=== PATIENT | female | born 1985 | race Asian ===

== ENCOUNTER 2020-03-31 09:37 | Outpatient (CLI) | payer BC, SELFPAY ==
--- NOTE | ~2020-03-31 | MR_ITS ---
EXAMINATION: MR pituitary wo/w con DATE: 03/31/2020 11:09 INDICATION: Hyperprolactinemia. TECHNIQUE: Magnetic resonance imaging (MRI) of the brain and brainstem was performed without and with 15 mL MultiHance intravenous contrast. Whole-brain sequences included sagittal T1-weighted FSE, axia l diffusion-weighted FS EPI, axial T2*-weighted GRE, axial T2-weighted FLAIR Propeller, and axial T2- weighted Propeller. Small pflio-yq-yfqw sequences included sagittal and coronal T1-weighted FSE cente red at the pituitary. Postcontrast sequences included small mwawj-ml-tmng coronal T1-weighted FSE in a time course and sagittal T1-weighted FSE and whole-brain axial T1-weighted FSE. Apparent diffusion coefficient (ADC) maps were created. COMPARISON: None. FINDINGS: The pituitary is normal in size with height of 7 mm and concave superior margin. There is a 3 mm hypoenhancing versus nonenhancing mass in the pituitary on the left. There is no intracranial h emorrhage or acute ischemic infarct. The ventricles are normal in size. The orbits are normal. The pa ranasal sinuses are clear. The mastoid air cells are normal. IMPRESSION: 1. 3 mm pituitary mass, which may be a microadenoma or benign cyst. Reviewed, dictated and finalized at location A. Y INTERVENTION SPECIALIST
[2020-03-31 10:19] LABS: Estimated Glomerular Filt Rate > 60
== END 2020-03-31 09:38 | disposition home or self-care (01) ==
LOC: ANHIMG 09:46
PROVIDERS: PCP Internal Medicine; Visit Provider Obstetrics & Gynecology
DX: R79.89 Other specified abnormal findings of blood chemistry (principal); E23.7 Disorder of pituitary gland, unspecified
CPT/HCPCS: 70553; A9577

== ENCOUNTER 2020-05-16 12:54 | Outpatient (RCR) | payer BC, SELFPAY ==
[2020-05-22 05:42] LABS: Progesterone 14.7 ng/mL (***)
== END 2020-08-12 23:59 | disposition home or self-care (01) ==
LOC: ANHLAB 12:54
PROVIDERS: PCP Internal Medicine; Visit Provider Obstetrics & Gynecology
DX: N91.2 Amenorrhea, unspecified (principal)
CPT/HCPCS: 36415; 84144; 84702

== ENCOUNTER 2020-06-10 13:11 | Outpatient (CLI) | payer BC, SELFPAY ==
--- NOTE | 2020-06-10 13:15 | ECG_ITS ---
Measurements Intervals [place] Rate: 77 P: 17 MA: 141 QRS: 34 QRSD: 78 T: 19 QT: 374 QTc: 423 Interpretive Statements SINUS RHYTHM NORMAL ECG Electronically Signed On 06-10-2020 13:37:34 CAREER DEVELOPMENT MANAGER by Hao Morrissey D.O.
== END 2020-06-10 13:12 | disposition home or self-care (01) ==
LOC: ANHLAB 13:12 → ANHCARD 13:13
PROVIDERS: PCP Internal Medicine; Visit Provider Obstetrics & Gynecology
DX: R07.89 Other chest pain (principal); R06.02 Shortness of breath
CPT/HCPCS: 93005

== ENCOUNTER 2020-07-11 09:59 | Outpatient (CLI) | payer BC, SELFPAY ==
[2020-07-11 12:56] LABS: Glucose 1 Hour PP 50gm Dose 152 mg/dL
== END 2020-07-11 10:00 | disposition home or self-care (01) ==
PROVIDERS: PCP Internal Medicine; Visit Provider Obstetrics & Gynecology
DX: Z34.90 Encounter for supervision of normal pregnancy, unspecified, unspecified trimester (principal); Z3A.00 Weeks of gestation of pregnancy not specified
CPT/HCPCS: 36415; 82947

== ENCOUNTER 2020-07-16 08:29 | Outpatient (CLI) | payer BC, SELFPAY ==
[2020-07-16 09:01] LABS: Glucose Fasting Gestational 98 mg/dL (>/=95)
[2020-07-16 10:35] LABS: Glucose 1 Hour Gest 159 mg/dL (>/=180)
[2020-07-16 12:10] LABS: Glucose 2 Hour Gest 123 mg/dL (>/= 155)
[2020-07-16 12:32] LABS: Glucose 3 Hour Gest 105 mg/dL (>/=140)
== END 2020-07-16 08:30 | disposition home or self-care (01) ==
LOC: ANHLAB 08:31
PROVIDERS: PCP Internal Medicine; Visit Provider Obstetrics & Gynecology
DX: R73.09 Other abnormal glucose (principal)
CPT/HCPCS: 0001A; 36415; 82951; 82952; 91300

== ENCOUNTER 2020-10-22 08:03 | Outpatient (CLI) | payer OTHER, SELFPAY ==
[2020-10-22 08:22] LABS: Basophils Percent Auto 0.4 % (0.2-1.2); Eosinophils Absolute Auto 0.2 K/mm3 (0-0.3); Eosinophils Percent Auto 1.6 % (0-4.4); Hematocrit 34.1 % (37.0-47.0); Hemoglobin 10.7 g/dL (12.0-15.0); Immature Granulocyte Absolute 0.25 K/mm3 (0.00-0.031); Immature Granulocyte Percent A 2.6 % (0-0.5); Lymphocytes Absolute Auto 1.98 K/mm3 (0.9-3.2); Lymphocytes Percent Auto 20.9 % (18.3-44.2); Mean Corpuscular HGB Conc 31.4 g/dl (32-36); Mean Corpuscular Hemoglobin 22.4 pg (26-34); Mean Corpuscular Volume 71.3 fl (80-100); Mean Platelet Volume 10.7 fl (7.4-10.4); Monocytes Absolute Auto 0.7 K/mm3 (0.1-0.6); Monocytes Percent Auto 7.4 % (2.6-8.5); Neutrophils Absolute Auto 6.4 K/mm3 (1.3-6.7); Neutrophils Percent Auto 67.1 % (45.5-73.1); Platelet Count Result 200 k/mm3 (150-375); Red Blood Count 4.78 M/mm3 (4.2-5.4); Red Cell Distribution Width 13.7 % (11.5-14.5); White Blood Count 9.5 K/mm3 (4.5-10.0)
[2020-10-22 08:48] LABS: Glucose Fasting Gestational 106 mg/dL (>/=95)
[2020-10-22 10:37] LABS: Glucose 1 Hour Gest 199 mg/dL (>/=180)
[2020-10-22 10:59] LABS: Glucose 2 Hour Gest 165 mg/dL (>/= 155)
[2020-10-22 11:58] LABS: Glucose 3 Hour Gest 122 mg/dL (>/=140)
== END 2020-10-22 08:04 | disposition home or self-care (01) ==
LOC: ANHLAB 08:05
PROVIDERS: PCP Internal Medicine; Visit Provider Obstetrics & Gynecology
DX: O99.810 Abnormal glucose complicating pregnancy (principal); Z3A.00 Weeks of gestation of pregnancy not specified
CPT/HCPCS: 36415; 82951; 82952; 85025; 86850

== ENCOUNTER 2020-10-29 09:30 | Outpatient (RCR) | payer OTHER, SELFPAY ==
[2020-10-29 09:30] VITALS: BMI 31.8
[2020-10-29 09:40] VITALS: BMI 31.8
== END 2021-01-18 12:20 | disposition home or self-care (01) ==
LOC: ANHDMC 09:30
PROVIDERS: PCP Internal Medicine; Visit Provider Obstetrics & Gynecology
DX: O24.419 Gestational diabetes mellitus in pregnancy, unspecified control (principal); Z3A.00 Weeks of gestation of pregnancy not specified; Z71.3 Dietary counseling and surveillance; Z71.89 Other specified counseling
CPT/HCPCS: 97802; G0108

== ENCOUNTER 2020-12-09 13:30 | Outpatient (RCR) | payer OTHER, SELFPAY ==
[2020-11-04 14:15] VITALS: BP 123/73; PULSE 72
--- NOTE | ~2020-12-09 | US_ITS ---
EXAMINATION: US OB limited DATE: 11/04/2020 13:59 INDICATION: Decreased movement, third trimester TECHNIQUE: Real-time ultrasound of the pelvis was performed. The interpreting radiologist was not pre sent for the study. COMPARISON: None. FINDINGS: There is a single living fetus in breech presentation. The placenta is fundal. cardia c activity and movement are noted. heart rate is 157 beats per minute (bpm). The amniotic fluid index is 9.9 cm which is normal. IMPRESSION: 1. Single living fetus in breech presentation. 2. Normal amniotic fluid index. Reviewed, dictated and finalized at location B.
[2020-12-09 14:02] VITALS: BP 118/78; PULSE 76
== END 2020-12-16 08:17 | disposition home or self-care (01) ==
LOC: ANHOBOP 13:30
PROVIDERS: PCP Internal Medicine; Visit Provider Obstetrics & Gynecology
DX: O36.8130 Decreased fetal movements, third trimester, not applicable or unspecified (principal); Z3A.31 31 weeks gestation of pregnancy; Z3A.36 36 weeks gestation of pregnancy
CPT/HCPCS: 59025; 76815

== ENCOUNTER 2020-12-14 17:09 | Inpatient (IN) | payer OTHER, SELFPAY ==
[2020-12-14] VITALS (14 sets, daily range): BP systolic 120–141; BP diastolic 70–88; PULSE 74–87; TEMP 36.3–36.4; BMI 31.8
--- NOTE | 2020-12-14 17:09 | LDADM ---
This patient, Samantha Gomez, was admitted to Labor/Delivery/Recovery 108 on 12/14/20 at 17:09. Plans for labor, pain management and were discussed with patient. Patient/family oriented to hospital policies and general routines including ID bracelet, bed and alarms, visiting hours, pain management, procedures, bathroom and other care routines, personal items, smoking policy, room service/diet and guest tray routines, security routines, and visiting hours. Patient/Family are encouraged to report perceived risks to care and to ask questions if they do not understand what they are told or what they should do. See OBIX for further documentation.
--- NOTE | 2020-12-14 18:22 | WPDANESEPPF ---
Anes - Initial Pre Proc Eval Procedure: labor epidural Date/Time: 12/14/20 18:22 Surgeon: Shoaib Sapp MD Pre Op Diagnosis: labor pain Pre Op Diagnosis: Induction of Labor Patient Data Age: 35 Gender: F Height: Weight: Last Vital Signs Pulse 84 12/14/20 18:15 BP 124/77 12/14/20 18:15 Allergies Allergy/AdvReac Type Severity Reaction Status Date / Time No Known Allergies Allergy Verified 12/14/20 09:11 Home Medications Medication Instructions Recorded Confirmed Type prenat.vits,curt,gvz-hzlt-vglth 1 tablet PO DAILY 03/12/20 12/05/20 History acetaminophen 500 mg tablet 500 mg PO Q6H PRN 08/13/20 12/05/20 History blood sugar diagnostic #100 ea 10/26/20 12/05/20 Rx blood-glucose meter #1 ea 10/26/20 12/05/20 Rx lancets 33 gauge #100 ea 10/26/20 12/05/20 Rx ferrous sulfate mg PO 12/09/20 History insulin glargine [Lantus U-100 18 unit SUBCUT 12/09/20 12/09/20 History Insulin] Patient hx anesthesia problems: none Family hx anesthesia problems: none PMFSH Past Medical History Medical History (Updated 12/14/20 @ 18:23 by Jairo Lewis DO) Asthma Gestational diabetes History of PCOS Migraines Obesity Swollen joint Surgical History Surgical History [place] teeth removed Family History Family History Father Hypertension Mother Hypertension Sibling IBS (irritable bowel syndrome) Social History Social History Smoking status: Never smoker Alcohol intake: never Substance use: never Spiritual care concerns: No Anes - Eval Final PreProcedure Day of Procedure 12/14/20 18:22 Patient weight: obese ASA classification: III Anesthesia type and monitoring: regional epidural Informed Consent: The patient's anesthetic plan and its attendant risks and benefits were discussed with the patient/family/POA. Questions were solicited and answers provided to the satisfaction of the patient/family/POA.
[2020-12-14 18:48] LABS: Basophils Percent Auto 0.3 % (0.2-1.2); Eosinophils Absolute Auto 0.1 K/mm3 (0-0.3); Eosinophils Percent Auto 1.3 % (0-4.4); Hematocrit 34.9 % (37.0-47.0); Hemoglobin 10.9 g/dL (12.0-15.0); Immature Granulocyte Percent A 1.2 % (0-0.5); Lymphocytes Absolute Auto 2.02 K/mm3 (0.9-3.2); Lymphocytes Percent Auto 23.4 % (18.3-44.2); Mean Corpuscular HGB Conc 31.2 g/dl (32-36); Mean Corpuscular Hemoglobin 22.4 pg (26-34); Mean Corpuscular Volume 71.8 fl (80-100); Mean Platelet Volume 11.7 fl (7.4-10.4); Monocytes Absolute Auto 0.6 K/mm3 (0.1-0.6); Monocytes Percent Auto 6.8 % (2.6-8.5); Neutrophils Absolute Auto 5.8 K/mm3 (1.3-6.7); Platelet Count Result 192 k/mm3 (150-375); Red Blood Count 4.86 M/mm3 (4.2-5.4); Red Cell Distribution Width 14.9 % (11.5-14.5); White Blood Count 8.7 K/mm3 (4.5-10.0)
[2020-12-14] MEDS: DINOPROSTONE 10 MG VAG INSERT VAGINAL (19:02)
[2020-12-14] MEDS: LACTATED RINGERS 1,000 ML 125 ML IV CONT (19:09)
[2020-12-14] MEDS: AMPICILLIN 2 GM/NS 100 ML 2 GM/100 ML BAG IVPB (19:10)
[2020-12-14 19:37] LABS: Glucose Point of Care 96 mg/dl (65-105)
[2020-12-14] MEDS: INSULIN GLARGINE (*BKC) 100 UNITS/ML 18 UNITS SUB-Q (22:08)
[2020-12-14] MEDS: AMPICILLIN 1 GM/NS 50 ML 1 GM/50 ML BAG IVPB (23:45)
[2020-12-15] VITALS (101 sets, daily range): BP systolic 96–153; BP diastolic 55–93; PULSE 65–111; RESP 16–20; TEMP 36.4–37.3; O2SAT 96–100
[2020-12-15] MEDS: fentaNYL CITRATE INJ (*CRX) 100 MCG/2 ML VIAL 50 MCG IV PUSH (01:33)
[2020-12-15] MEDS: AMPICILLIN 1 GM/NS 50 ML 1 GM/50 ML BAG IVPB ×4 (03:13→14:42)
[2020-12-15] MEDS: fentaNYL CITRATE INJ (*CRX) 100 MCG/2 ML VIAL IV PUSH (03:13)
[2020-12-15] MEDS: LACTATED RINGERS 1,000 ML 125 ML IV CONT ×2 (06:21→07:16)
[2020-12-15 06:34] LABS: Glucose Point of Care 92 mg/dl (65-105)
[2020-12-15] MEDS: OXYTOCIN 30 UNITS/NS 500 ML 30 UNITS/500 ML BAG 6 UNITS IV CONT (10:14)
[2020-12-15] MEDS: DEXTROSE 5%/LACTATED RINGERS 1,000 ML 125 ML IV CONT (13:15)
[2020-12-15] MEDS: OXYTOCIN 30 UNITS/NS 500 ML 30 UNITS/500 ML BAG 125 UNITS IV CONT (16:28)
[2020-12-15 16:46] LABS: Glucose Point of Care 71 mg/dl (65-105)
[2020-12-15 16:46] LABS: Glucose Point of Care 75 mg/dl (65-105)
[2020-12-15 16:46] LABS: Glucose Point of Care 82 mg/dl (65-105)
[2020-12-15] MEDS: ONDANSETRON INJ 4 MG/2 ML VIAL IV PUSH (16:50)
--- NOTE | 2020-12-15 17:31 | PM.IMHP ---
H&P: HPI History of Present Illness Date/Time: 12/15/20 17:31 Patient is a at 37 weeks admitted for medical induction of labor due to intermittent oligohydramnios since approximately 32 weeks. Her last CM 7.4. [facility] recommended induction of labor at 36-37 weeks. PNC also significant for insulin requiring insulin. Controlled on 18units NPH at night. She has had normal tracing. labs reviewed. GBS positive. She has been informed of recommendation for induction and risk and benefits of induction of labor versus awaiting spontaneous labor. Chief Complaint: Medical induction of labor for history of recurrent oligohydramnios . Review of Systems Review of Systems: All systems reviewed & are unremarkable except as noted in HPI and below Constitutional: Constitutional: Reports no additional constitutional complaints and Denies headache(s) Eyes: Eyes: Denies spots in vision ENT: Reports system reviewed and no additional complaints, except as documented and Denies headache(s) Cardiovascular: Cardiovascular: Denies chest pain and Denies dyspnea Respiratory: Respiratory: Denies dyspnea Gastrointestinal: Gastrointestinal: Reports no additional gastrointestinal complaints Genitourinary: Genitourinary: Reports amenorrhea Musculoskeletal: Musculoskeletal: Reports no additional musculoskeletal complaints Integumentary/Breasts: Skin/Breast: Denies breast mass and Denies rash Neurologic: Denies headache(s) Psychiatric: Psychiatric: Reports no additional psychiatric complaints [facility] Past Medical History Medical History Asthma Gestational diabetes History of PCOS Migraines Obesity Swollen joint Surgical History Surgical History [place] teeth removed Family History Family History Father Hypertension Mother Hypertension Sibling IBS (irritable bowel syndrome) Social History Social History Smoking status: Never smoker Alcohol intake: never Substance use: never Spiritual care concerns: No Meds Home Medications and Allergies Home Medications Medication Instructions Recorded Confirmed Type prenat.vits,curt,rpj-mbev-zxmom 1 tablet PO DAILY 03/12/20 12/15/20 History acetaminophen 500 mg tablet 500 mg PO Q6H PRN 08/13/20 12/15/20 History blood sugar diagnostic #100 ea 10/26/20 12/15/20 Rx blood-glucose meter #1 ea 10/26/20 12/15/20 Rx lancets 33 gauge #100 ea 10/26/20 12/15/20 Rx ferrous sulfate 300 mg PO DAILY 12/09/20 12/15/20 History insulin glargine [Lantus U-100 18 unit SUBCUT HS 12/09/20 12/15/20 History Insulin] Allergies Allergy/AdvReac Type Severity Reaction Status Date / Time No Known Allergies Allergy Verified 12/15/20 13:31 Vital Signs Vital Signs - 24 hr 12/14/20 17:45 12/14/20 18:00 12/14/20 18:15 Temperature Pulse Rate 87 84 84 Respiratory Rate Blood Pressure 127/78 129/75 124/77 Pulse Oximetry 12/14/20 18:30 12/14/20 19:16 12/14/20 19:30 Temperature Pulse Rate 74 79 77 Respiratory Rate Blood Pressure 133/88 141/88 H 124/80 Pulse Oximetry 12/14/20 19:45 12/14/20 20:00 12/14/20 20:15 Temperature Pulse Rate 79 82 77 Respiratory Rate Blood Pressure 125/77 120/79 128/71 Pulse Oximetry 12/14/20 20:30 12/14/20 20:45 12/14/20 21:00 Temperature 97.5 F L Pulse Rate 74 75 74 Respiratory Rate Blood Pressure 129/70 135/83 126/80 Pulse Oximetry 12/14/20 22:11 12/14/20 22:13 12/15/20 01:06 Temperature 97.4 F L Pulse Rate 75 78 Respiratory Rate Blood Pressure 124/74 132/77 Pulse Oximetry 12/15/20 01:07 12/15/20 03:13 12/15/20 03:15 Temperature 97.9 F 97.5 F L Pulse Rate 73 Respiratory Rate 18 20 Blood Pressure 144/74 H Pulse Oximetry 12/15/20 05:21 08
--- NOTE | 2020-12-15 17:47 | PM.OBPRVD ---
OB - Delivery Note Procedure Delivery date: 12/15/20 Procedure: Spontaneous vaginal delivery. events: Gestational Diabetes and Oligohydramnios Induction method: per cervidil protocol Delivery augmentation: rupture of membranes ( 829) Delivery monitor: external FHT Route of delivery: Laceration Description: Perineal - 2nd Degree, Vaginal - 1st Degree and Cervical Delivery repair: vicryl ( 3 0 Vicryl) Specimen: Yes ( placenta and cord) Quantitative Blood Loss (ml): 525 Anesthesia type: Epidural Disposition: floor Complications: hemorrhage. Uterine hypotonia. Narrative: patient admitted on December 14 in the evening for Cervidil. Her cervix was closed and thick at that time. She did have contractions through the night. She did receive pain medication. She was started on admission on ampicillin for positive GBS carrier. She did get fingersticks which were within normal range. She did received her evening dose of 18 units of NPH. After the Cervidil was removed in the morning on December 15 her cervix was 2 cm 70% -2. She requested an epidural and an epidural was placed. She had assisted rupture of membranes at approximately 8:30 a.m. with clear fluid. She progressed into active labor. She dilated to complete. She pushed less than 40 minutes. She delivered a female . Was a loose nuchal cord which was manually reduced. was vigorously crying and placed on maternal abdomen. Delayed cord clamping was performed. This was done approximately 40 seconds when the cord was a pulsatile and the cord was doubly clamped and cut. The placenta delivered spontaneously and intact. The uterus was noted to be hypotonic. The lower uterine segment was cleared of clots. The uterus was massaged vigorously. The Pitocin flow was increased. The tone did improve but was intermittent. The cervix was inspected using ring forceps and there was noted to be a posterior cervical laceration which was repaired with 3 0 Vicryl hemostasis was improved. The uterus tone had improved with massage in clearing of the lower uterine segment. The vaginal area was inspected she does sustain a left vaginal wall laceration repaired with 0 Vicryl and also a smaller right vaginal laceration. These were repaired with 3 0 Vicryl. The second-degree perineal laceration was repaired with 3 0 Vicryl. Hemostasis was noted. Kube E el was 525 cc. Sponge count was correct. The uterine tone was good. Patient tolerated rated procedure well. Baby Date of : 12/15/20 Time of : 15:51 Weeks of gestation at delivery: 37 Infant gender: Female Weight (pounds): 6 presentation: vertex position: Right Occiput Anterior Placenta delivery description: Spontaneous cord vessel description: 3 Vessels, Nuchal Cord, Loose, Reduced ( Manually) and Delayed Cord Clamping score one minute: 8 score five minutes: 9
--- NOTE | 2020-12-15 17:59 | PM.OBPNVD ---
OB - PN: Subj Subjective Date/time seen: 12/15/20 0830 FHT 150 Cat 1 AROM clear. Continue Pitocin. OB - PN: Obj Data Labs CBC & Chem 7: 12/14/20 18:42 Labs: Laboratory Results - last 24 hr 12/14/20 12/14/20 12/14/20 18:42 18:42 19:33 WBC 8.7 RBC 4.86 Hgb 10.9 L Hct 34.9 L MCV 71.8 L MCH 22.4 L MCHC 31.2 L RDW 14.9 H Plt Count 192 MPV 11.7 H Immature Gran % (Auto) 1.2 H Neut % (Auto) 67.0 Lymph % (Auto) 23.4 [place] % (Auto) 6.8 Eos % (Auto) 1.3 Baso % (Auto) 0.3 Lymph # (Auto) 2.02 [place] # (Auto) 0.6 Eos # (Auto) 0.1 Baso # (Auto) 0.0 Abs Immat Gran (auto) 0.10 H Absolute Neuts (auto) 5.8 Absolute Nucleated RBC 0.0 Nucleated RBC % 0.0 POC Capillary Glucose 96 Blood Type O Positive Antibody Screen Negative 12/15/20 12/15/20 12/15/20 06:25 10:28 12:40 WBC RBC Hgb Hct MCV MCH MCHC RDW Plt Count MPV Immature Gran % (Auto) Neut % (Auto) Lymph % (Auto) [place] % (Auto) Eos % (Auto) Baso % (Auto) Lymph # (Auto) [place] # (Auto) Eos # (Auto) Baso # (Auto) Abs Immat Gran (auto) Absolute Neuts (auto) Absolute Nucleated RBC Nucleated RBC % POC Capillary Glucose 92 75 71 Blood Type Antibody Screen 12/15/20 16:25 WBC RBC Hgb Hct MCV MCH MCHC RDW Plt Count MPV Immature Gran % (Auto) Neut % (Auto) Lymph % (Auto) [place] % (Auto) Eos % (Auto) Baso % (Auto) Lymph # (Auto) [place] # (Auto) Eos # (Auto) Baso # (Auto) Abs Immat Gran (auto) Absolute Neuts (auto) Absolute Nucleated RBC Nucleated RBC % POC Capillary Glucose 82 Blood Type Antibody Screen OB - PN A/P Time Spent With Patient Time: Total time spent is greater than 50% in coordination of care (as documented) at patient's floor/unit and/or counseling patient:
--- NOTE | 2020-12-15 18:01 | PM.OBPNVD ---
OB - PN: Subj Subjective Date/time seen: 12/15/20 1240 Tracing reviewed. Cat 1. FS 70s. IVF changed to D5LR. Patient had liquid meal tray. OB - PN: Obj Data Labs CBC & Chem 7: 12/14/20 18:42 Labs: Laboratory Results - last 24 hr 12/14/20 12/14/20 12/14/20 18:42 18:42 19:33 WBC 8.7 RBC 4.86 Hgb 10.9 L Hct 34.9 L MCV 71.8 L MCH 22.4 L MCHC 31.2 L RDW 14.9 H Plt Count 192 MPV 11.7 H Immature Gran % (Auto) 1.2 H Neut % (Auto) 67.0 Lymph % (Auto) 23.4 [place] % (Auto) 6.8 Eos % (Auto) 1.3 Baso % (Auto) 0.3 Lymph # (Auto) 2.02 [place] # (Auto) 0.6 Eos # (Auto) 0.1 Baso # (Auto) 0.0 Abs Immat Gran (auto) 0.10 H Absolute Neuts (auto) 5.8 Absolute Nucleated RBC 0.0 Nucleated RBC % 0.0 POC Capillary Glucose 96 Blood Type O Positive Antibody Screen Negative 12/15/20 12/15/20 12/15/20 06:25 10:28 12:40 WBC RBC Hgb Hct MCV MCH MCHC RDW Plt Count MPV Immature Gran % (Auto) Neut % (Auto) Lymph % (Auto) [place] % (Auto) Eos % (Auto) Baso % (Auto) Lymph # (Auto) [place] # (Auto) Eos # (Auto) Baso # (Auto) Abs Immat Gran (auto) Absolute Neuts (auto) Absolute Nucleated RBC Nucleated RBC % POC Capillary Glucose 92 75 71 Blood Type Antibody Screen 12/15/20 16:25 WBC RBC Hgb Hct MCV MCH MCHC RDW Plt Count MPV Immature Gran % (Auto) Neut % (Auto) Lymph % (Auto) [place] % (Auto) Eos % (Auto) Baso % (Auto) Lymph # (Auto) [place] # (Auto) Eos # (Auto) Baso # (Auto) Abs Immat Gran (auto) Absolute Neuts (auto) Absolute Nucleated RBC Nucleated RBC % POC Capillary Glucose 82 Blood Type Antibody Screen OB - PN A/P Time Spent With Patient Time: Total time spent is greater than 50% in coordination of care (as documented) at patient's floor/unit and/or counseling patient:
[2020-12-15] MEDS: IBUPROFEN 600 MG TABLET PO (18:40)
--- NOTE | 2020-12-15 20:01 | OBPPTRN ---
Patient transferred to post room #288 via wheelchair. Support person present. Oriented to unit, room, information board, rooming in, admission packet and security measures. Patient verbalizes understanding.
[2020-12-15] MEDS: ACETAMINOPHEN 325 MG TABLET 650 MG PO (22:25)
[2020-12-16 05:00] VITALS: BP 125/88; PULSE 88; RESP 16; TEMP 36.6; O2SAT 100
[2020-12-16] MEDS: IBUPROFEN 600 MG TABLET PO ×3 (05:16→18:03)
[2020-12-16 05:36] LABS: Glucose Point of Care 93 mg/dl (65-105)
[2020-12-16 05:39] LABS: Hematocrit 29.1 % (37.0-47.0); Hemoglobin 9.2 g/dL (12.0-15.0)
[2020-12-16 06:45] VITALS: BP 117/77; PULSE 78; RESP 18; TEMP 36.6; O2SAT 100
[2020-12-16 06:50] LABS: Rapid Plasma Reagin Non-Reactive (NonReactive)
--- NOTE | 2020-12-16 07:41 | PM.OBPNVD ---
OB - PN: Subj Subjective Date/time seen: 12/16/20 07:41 Patient comments: no complaints, pain well controlled and other (Lochia similar to menses. No dizziness, SOB, chest pain) [place] baby status: doing well OB - PN: Obj Data Labs CBC & Chem 7: 12/16/20 05:31 Labs: Laboratory Results - last 24 hr 12/14/20 12/15/20 12/15/20 18:42 10:28 12:40 Hgb Hct POC Capillary Glucose 75 71 RPR Non-reactive 12/15/20 12/16/20 12/16/20 16:25 05:28 05:31 Hgb 9.2 L Hct 29.1 L POC Capillary Glucose 82 93 RPR OB - PN A/P Plan day: 1 (s/p vaginal delivery, doing well) Plan: routine care Time Spent With Patient Time: Total time spent is greater than 50% in coordination of care (as documented) at patient's floor/unit and/or counseling patient: Exam Const: General: no acute distress GI: Inspection: other (Fundus firm and nontender at umbilicus) GI Palp: Yes Soft to palpation and No Tenderness to palpation present (GI) Extrem: General: no edema
[2020-12-16] MEDS: MULTIVIT/MIN/PREN/FOL AC/IRON TABLET 1 TAB PO (09:30)
[2020-12-16] MEDS: DOCUSATE SODIUM 100 MG CAPSULE PO ×2 (09:30→18:03)
[2020-12-16] MEDS: POLYSACCHARIDE IRON COMPLEX 150 MG CAPSULE PO ×2 (09:31→18:02)
--- NOTE | 2020-12-16 09:33 | WPDANLDPN2 ---
Anes-Prog Note L&D Date/Time: 12/16/20 09:33 Comfortable throughout: labor and delivery Neuraxial method: epidural Epidural/Spinal procedure site: clean & non-tender Neuro status: Neuro function grossly intact. Cardiovascular status: normal Respiratory status: normal Airway patency: baseline Mental status: baseline Post-Op hydration status: normal Vital Signs: Last Vital Signs Temp 36.6 C 12/16/20 05:00 Pulse 88 12/16/20 05:00 Resp 16 12/16/20 05:00 BP 125/88 12/16/20 05:00 Pulse Ox 100 12/16/20 05:00 Pain score (VAS): 0/10 I/O: Intake & Output 12/15/20 12/16/20 12/16/20 23:59 07:59 15:59 Intake Total 1400 Balance 1400 Post-procedural complaints: none Patient feedback: Patient satisfied with anesthetic care.
[2020-12-16 11:32] VITALS: BP 134/85; PULSE 95; RESP 16; TEMP 37.1; O2SAT 100
[2020-12-16 13:13] VITALS: PULSE 95; RESP 16; O2SAT 100
--- NOTE | 2020-12-16 14:13 | PC.NURSE ---
Addendum entered by Candie Sweet RN 12/16/20 14:20: 1355 time assisted Original Note: Mother called out for assist with feeding. Infant has been sleepy and unable to draw nipple in. Mother was given a nipple shield for feedings. Mother will put infant to breast using nipple shield, she will bottle feed and pump. is able to freely thrust tongue past gum ridge and flange both lips. Infant sucks on her tongue not dropping to allow nipple in for deep latch. Skin is intact on both nipples, no redness and bruising noted. Discussed nipple shield precautions and possible complications. Instructions given on application and cleaning of shield. Patient able to return demonstration on proper application of shield. Discussed the need for regular pumping if continues to nurse with the shield. Patient verbalizes understanding. Reviewed feeding cues, frequencies, duration of feedings, feeding elimination flow sheet, and signs of adequate intake. Demonstrated stimulation techniques to wake infant for feeding. Assisted with to breast with shield in place. Reviewed positioning/alignment in cross cradle, holding breast in ?U? hold and guided asymmetrical latch on. Discussed rational for each. Several attempts before infant able to latch correctly due to tongue. Reviewed signs of a correct latch, effective nursing and suck swallow ratio. Infant nursed eagerly, with steady draws and frequent swallowing noted. Reviewed the difference of effective vs ineffective nursing. Suggested mother stimulate while feeding to increase stimulation, increase intake and to assist with maintaining deep latch. would slip to shallow latch. Demonstrated how to adjust latch more deeply while feeding. Nipple care reviewed of lanolin after feedings, warm compresses as needed. Instructed mother to call out for RN assistance if she is unable to latch infant for feeding or she has discomfort with nursing. Suggested to remove shield and attempt. was able to latch without shield on left breast. Infant would latch and draw nipple in nursing for good bursts of rhythmical draws for up to 1 minute, she would release latch eagerly returning to breast. Mother continued to work with latch for 10+ minutes, infant is sleepy and does not make attempts. Mother will bottle feed then pump. Instructed feeding should be initiated three hours from start of last feeding or if feeding cues are noted before. Mother voiced understanding of information shared.
[2020-12-16 20:40] VITALS: BP 125/80; PULSE 81; RESP 14; TEMP 36.7
[2020-12-17] MEDS: IBUPROFEN 600 MG TABLET PO ×2 (01:31→07:43)
[2020-12-17] MEDS: DOCUSATE SODIUM 100 MG CAPSULE PO (07:43)
[2020-12-17] MEDS: POLYSACCHARIDE IRON COMPLEX 150 MG CAPSULE PO (07:43)
[2020-12-17] MEDS: MULTIVIT/MIN/PREN/FOL AC/IRON TABLET 1 TAB PO (07:43)
--- NOTE | 2020-12-17 07:45 | PC.NURSE ---
Patient viewed the discharge video Mother & Baby Care, The First Two Weeks . Patient was given the opportunity and encouraged to ask questions. Patient verbalized understanding of information shared and has been given the mother/baby guide for home reference.
--- NOTE | 2020-12-17 08:13 | PM.OBPNVD ---
OB - PN: Subj Subjective Date/time seen: 12/17/20 08:13 She is and supplementing. Ambulating well. No lightheadedness or dizziness. Patient comments: pain well controlled, tolerating diet and other (Decreasing lochia.) [place] baby status: doing well and nursing well OB - PN: Obj Data Labs CBC & Chem 7: 12/16/20 05:31 OB - PN A/P Plan day: 2 Plan: discharge home and other Comments: Patient doing well. Follow up 4-6 weeks. Discharge instructions provided. Time Spent With Patient Time: Total time spent is greater than 50% in coordination of care (as documented) at patient's floor/unit and/or counseling patient: Time with patient: less than 15 minutes Exam Psych: Affect: normal affect Other: Abd: fundus firm below umbilicus, nontender Perineum: healing Ext: nontender
--- NOTE | 2020-12-17 08:14 | PM.OBDSVD ---
DS: Admitting Diagnosis Admitting Diagnosis 1.Medical induction of labor 2. History of intermittent oligohydramnios. 3. Gestational diabetes DS: Discharge Diagnosis Discharge Diagnosis (1) Delivered after artificial rupture of membranes: Status: Acute OB - DS: Summary Hospital Course Hospital Course: Patient was admitted on December 14 for Cervidil induction. She was recommended for medical induction of labor due to history intermittent oligohydramnios. She also has insulin controlled gestational diabetes. She is also GBS positive. She did get the Cervidil she was timmy with the Cervidil. The morning of December 15 she was 2 cm dilated. She had assisted rupture of membranes that morning. She progressed to complete and had a vaginal delivery. See delivery note. she did well. She had adequate pain control. She had asymptomatic anemia.This was not significantly different from her antepartum anemia. Therefore not due to blood loss. She was getting iron supplement and daily vitamins. She had adequate pain control with Motrin in the hospital. She was ambulating well. Tolerating regular diet. Blood sugars were normal during labor and after delivery. Baby was doing well. She was latching well per patient. Discussed with her discharge precautions. OB Procedures : NST and Ultrasound OB Procedures Intrapartum: Spontaneous Vag Delivery OB Procedures: : None Peripartum Data Delivery Method: Natural Vaginal Laceration Description: Perineal - 2nd Degree and Vaginal - 1st Degree complications: none Status at Discharge Functional status at discharge: independent ambulation Time Spent with Patient Time attestation: Total time spent providing and/or coordinating discharge services: Exam Const: General: cooperative Orientation/consciousness: oriented to person, oriented to place and oriented to time HENMT: General nose exam: Normal external nose present Eyes: General: appearance normal, both eyes and all related structures Resp: Effort & Inspection: normal respiratory effort GI: Inspection: normal to inspection Skin: General skin exam: normal color Neuro: General: oriented to person, oriented to place and oriented to time Extrem: General: normal to inspection and no calf tenderness Psych: Appearance: grossly normal Mental Status: mental status grossly normal DS: Data Data Completed and Pending Pending studies at discharge: Pending at discharge 12/15/20 15:55 Surgical [PTH] Routine Discharge Plan Discharge Attending physician on discharge: Shoaib Sapp Consulting providers: Jairo Lewis Discharging Clinician: Senait,Shoaib L. Anticipated Discharge Date/Time: 12/17/20 08:21 Patient Disposition: Home, Self-Care Activity: may shower and no straining Diet: regular Discharge Instructions: Pelvic rest for 6 weeks. May take over the counter Ibuprofen or Tylenol for pain. Call if saturating more than a pad an hour, leg redness, pain and swelling, temperature>100.4. No strenuous activity. She was instructed that she does not have to do any fingersticks. Discussed signs or symptoms of mastitis. Recommend she take a stool softener Colace 100 mg daily until her sutures are dissolved. Take vitamins daily. Patient Instructions: Antibiotic Form Stand Alone Forms: General Discharge Information Follow-up/Referrals: Shoaib Sapp MD [Physician] - 2 Weeks ( May follow up in 2-3 weeks.) Discharge Medications: Continued prenat.vits,curt,ych-fscn-bzjpm Tablet 1 tablet PO DAILY RF: 0 acetaminophen [Tylenol Extra Strength] 500 mg tablet 500 mg PO Q6H PRN (Reason: Headache) RF: 0 ferrous sulfate 300 mg (60 mg iron) Tablet 300 mg PO DAILY RF: 0 Discontinued Lantus U-100 Insulin 100 unit/mL Solution 18 unit SUBCUT HS RF: 0 No Action (DME) blood-glucose m
[2020-12-17 08:35] VITALS: BP 119/73; PULSE 80; RESP 16; TEMP 36.8; O2SAT 100
--- NOTE | 2020-12-17 12:05 | PC.NURSE ---
Mother continues to independently attempt to latch infant each feeding using the nipple shield. Mother demonstrates appropriate positioning/alignment. Infant makes eager attempts at times; mother will supplement EBM/formula to infant after each attempt. Infant is more awake with organized suckling this feeding. She denies any nipple discomfort, with feeding or pumping. Mother has a Spectra pump for home use. Infant is currently meeting outcomes for weight, output, jaundice and feeding frequencies. Mother states she feels confident to continue her /bottle feeding plan at home. Discussed increasing supplementation as desires. Advised infant may not want to feed for 4 hours with increased supplementation. Mother will continue to pump on feeding schedule and will increase session to 20 minutes if pumping every 4 hours. Discussed when infant is feeding effectively she may decrease supplementation. Advised must maintain current output and not to discontinue until follow up visit, ICP or LC evaluates feeding with pre/post weight. Reviewed transition to breast milk, signs of adequate intake, and engorgement/relief. Instructed to call ICP if intake/output less than required. Reviewed regular medications mother is taking. Information provided per Berenice. Reviewed community resources on the [facility] website and in the Mom/Baby guide. Information on outpatient services provided. Mother has no further questions at this time.
[2020-12-17] MEDS: MEASLES,MUMPS,RUBELLA VACCINE 0.5 ML VIAL SUB-Q (13:10)
[2020-12-18 08:44] VITALS: BP 132/75; PULSE 75; RESP 20; TEMP 37.2; O2SAT 100
== END 2020-12-17 14:15 | disposition home or self-care (01) | DRG 768 ==
LOC: ANHLDR 17:14 → ANHOB2 12-15 20:58
PROVIDERS: Admitting Provider Obstetrics & Gynecology; PCP Internal Medicine; Visit Provider Obstetrics & Gynecology
DX: O41.03X0 Oligohydramnios, third trimester, not applicable or unspecified (principal); Z37.0 Single live birth; O71.3 Obstetric laceration of cervix; O72.1 Other immediate postpartum hemorrhage; Z3A.37 37 weeks gestation of pregnancy; O24.424 Gestational diabetes mellitus in childbirth, insulin controlled; O70.1 Second degree perineal laceration during delivery; O69.81X0 Labor and delivery complicated by cord around neck, without compression, not applicable or unspecified; O99.52 Diseases of the respiratory system complicating childbirth; J45.909 Unspecified asthma, uncomplicated; O99.214 Obesity complicating childbirth; E66.9 Obesity, unspecified; O99.824 Streptococcus B carrier state complicating childbirth; O99.02 Anemia complicating childbirth; D64.9 Anemia, unspecified
CPT/HCPCS: 36415; 82948; 85014; 85018; 85025; 86592; 86850; 86900; 86901; 88307; 90710; A9270; J0290; J1815; J2405; J2590; J2795; J3010; J7120; J7121

== ENCOUNTER 2020-12-22 15:46 | Inpatient (IN) | payer OTHER, SELFPAY ==
[2020-12-22] VITALS (37 sets, daily range): BP systolic 91–188; BP diastolic 45–95; PULSE 57–97; RESP 18; TEMP 36.6; BMI 30.8
--- NOTE | 2020-12-22 15:44 | OBADM ---
This patient, Samantha Gomez, admitted to the OB room OB Post 116 for observation. Patient/family oriented to hospital policies and general routines including ID bracelet, bed and alarms, visiting hours, pain management, procedures, bathroom and other care routines, personal items, smoking policy, room service/diet, and visiting hours. Patient/Family are encouraged to report perceived risks to care and to ask questions if they do not understand what they are told or what they should do.
[2020-12-22 17:07] LABS: Basophils Percent Auto 0.5 % (0.2-1.2); Eosinophils Absolute Auto 0.2 K/mm3 (0-0.3); Hemoglobin 8.2 g/dL (12.0-15.0); Immature Granulocyte Absolute 0.38 K/mm3 (0.00-0.031); Immature Granulocyte Percent A 4.4 % (0-0.5); Lymphocytes Absolute Auto 2.03 K/mm3 (0.9-3.2); Lymphocytes Percent Auto 23.4 % (18.3-44.2); Mean Corpuscular HGB Conc 30.4 g/dl (32-36); Mean Corpuscular Hemoglobin 22.2 pg (26-34); Mean Corpuscular Volume 73.2 fl (80-100); Monocytes Absolute Auto 0.7 K/mm3 (0.1-0.6); Monocytes Percent Auto 8.5 % (2.6-8.5); Neutrophils Absolute Auto 5.3 K/mm3 (1.3-6.7); Neutrophils Percent Auto 61.2 % (45.5-73.1); Platelet Count Result 218 k/mm3 (150-375); Red Blood Count 3.69 M/mm3 (4.2-5.4); Red Cell Distribution Width 14.9 % (11.5-14.5); White Blood Count 8.7 K/mm3 (4.5-10.0)
[2020-12-22 17:18] LABS: Alanine Aminotransferase 47 U/L (4-35); Albumin Level 3.4 g/dL (3.5-5.1); Alkaline Phosphatase 118 U/L (38-126); Anion Gap 5 mmol/L (8-16); Aspartate Amino Transferase 28 U/L (14-36); Bilirubin,Total < 0.1 mg/dL (0.2-1.3); Blood Urea Nitrogen 12 mg/dL (7-17); Calcium 8.9 mg/dL (8.4-10.2); Carbon Dioxide 26 mmol/L (22-30); Chloride 105 mmol/L (98-107); Estimated Glomerular Filt Rate > 60; Glucose 103 mg/dL (65-110); Potassium 3.6 mmol/L (3.4-5.0); Sodium 136 mmol/L (137-145); Uric Acid 5.3 mg/dL (2.5-7.5)
--- NOTE | 2020-12-22 17:36 | PC.NURSE ---
Called Dr. Sapp with pt status. Informed of BPs and lab results. Orders received.
[2020-12-22] MEDS: NIFEdipine 10 MG CAPSULE PO (17:52)
[2020-12-22] MEDS: ACETAMINOPHEN 500 MG TABLET 1000 MG PO ×2 (18:10→23:57)
[2020-12-22] MEDS: MAGNESIUM SULF 4 GM/WATER100ML 4 GM/100 ML BAG IVPB (18:11)
[2020-12-22] MEDS: LACTATED RINGERS 1,000 ML 75 ML IV CONT (18:13)
--- NOTE | 2020-12-22 18:22 | PC.NURSE ---
Called Dr. Sapp with pt status. Informed of decrease in BP to 90's/40's. Orders received to decrease bolus to 2gm, then 1gm per hour.
[2020-12-22] MEDS: MAGNESIUM SULF 20GM/WATER500ML 500 ML 25 MG IV CONT (19:17)
[2020-12-22] MEDS: LACTATED RINGERS 1,000 ML 100 ML IV CONT (19:52)
[2020-12-23] VITALS (52 sets, daily range): BP systolic 104–165; BP diastolic 55–89; PULSE 58–88; RESP 18; TEMP 36.7–37.4; O2SAT 98–99
[2020-12-23] MEDS: LACTATED RINGERS 1,000 ML 100 ML IV CONT ×2 (04:31→13:47)
[2020-12-23] MEDS: ACETAMINOPHEN 500 MG TABLET 1000 MG PO (05:49)
--- NOTE | 2020-12-23 06:21 | PM.IMHP ---
H&P: HPI History of Present Illness Date/Time: 12/23/20 06:21 Patient is status post vaginal delivery Dec 15. She called office yesterday stating that blood pressures were 140s/90s and she had a severe headache not relieved with Ibuprofen and lower swelling and was not feeling well. Denied chest pain or SOB. She was recommended to go to L and D for evaluation. On L and D her bp were sustained 180s/70-90. Labs with elevated ALT. Her elevated blood pressure did respond to Procardia. She was informed of diagnosis of pre-eclampsia with severe range blood pressures and recommendation for admission and magnesium for seizure prophylaxis. Chief Complaint: Increased blood pressures and headache. Review of Systems Review of Systems: All systems reviewed & are unremarkable except as noted in HPI and below Constitutional: Constitutional: Reports no additional constitutional complaints Eyes: Eyes: Denies spots in vision ENT: Reports system reviewed and no additional complaints, except as documented Cardiovascular: Cardiovascular: Denies chest pain and Denies dyspnea Respiratory: Respiratory: Denies dyspnea Gastrointestinal: Gastrointestinal: Reports no additional gastrointestinal complaints Musculoskeletal: Musculoskeletal: Reports no additional musculoskeletal complaints Integumentary/Breasts: Skin/Breast: Denies breast mass and Denies rash Neurologic: Denies headache(s) Psychiatric: Psychiatric: Reports no additional psychiatric complaints [facility] Past Medical History Medical History Asthma Gestational diabetes History of PCOS Migraines Obesity Swollen joint Surgical History Surgical History [place] teeth removed Family History Family History Father Hypertension Mother Hypertension Sibling IBS (irritable bowel syndrome) Social History Social History Smoking status: Never smoker Alcohol intake: never Substance use: never Spiritual care concerns: No Meds Home Medications and Allergies Home Medications Medication Instructions Recorded Confirmed Type prenat.vits,curt,oxl-tlri-gcqyl 1 tablet PO DAILY 03/12/20 12/22/20 History acetaminophen 500 mg tablet 500 mg PO Q6H PRN 08/13/20 12/22/20 History ferrous sulfate 300 mg PO DAILY 12/09/20 12/22/20 History Allergies Allergy/AdvReac Type Severity Reaction Status Date / Time No Known Allergies Allergy Verified 12/15/20 13:31 Vital Signs Vital Signs - 24 hr 12/22/20 16:50 12/22/20 17:00 12/22/20 17:15 Temperature 97.9 F Pulse Rate 57 L 58 L 60 Respiratory Rate Blood Pressure 186/86 H 182/91 H 188/95 H Pulse Oximetry 12/22/20 17:30 12/22/20 17:45 12/22/20 18:05 Temperature Pulse Rate 57 L 58 L 60 Respiratory Rate Blood Pressure 187/88 H 180/94 H 164/81 H Pulse Oximetry 12/22/20 18:15 12/22/20 18:16 12/22/20 18:19 Temperature Pulse Rate 95 97 92 Respiratory Rate Blood Pressure 104/50 L 95/48 L 91/45 L Pulse Oximetry 12/22/20 18:20 12/22/20 18:24 12/22/20 18:29 Temperature Pulse Rate 90 88 83 Respiratory Rate Blood Pressure 99/54 L 98/45 L 93/45 L Pulse Oximetry 12/22/20 18:31 12/22/20 18:45 12/22/20 19:00 Temperature Pulse Rate 79 76 82 Respiratory Rate Blood Pressure 96/46 L 107/52 L 113/61 Pulse Oximetry 12/22/20 19:15 12/22/20 19:17 12/22/20 19:23 Temperature Pulse Rate 74 Respiratory Rate 18 18 Blood Pressure 108/61 Pulse Oximetry 12/22/20 19:30 12/22/20 19:31 12/22/20 19:45 Temperature 97.9 F Pulse Rate 74 74 76 Respiratory Rate 18 Blood Pressure 108/64 108/64 110/61 Pulse Oximetry 12/22/20 20:00 12/22/20 20:15 12/22/20 20:30 Temperature Pulse Rate 73 72 72 Respiratory Rate Blood Pressure 108/5
--- NOTE | 2020-12-23 07:28 | PC.NURSE ---
Dr Sapp here to see patietn. Orders obtained.
[2020-12-23 08:11] LABS: Alanine Aminotransferase 40 U/L (4-35); Albumin Level 3.3 g/dL (3.5-5.1); Alkaline Phosphatase 115 U/L (38-126); Anion Gap 6 mmol/L (8-16); Aspartate Amino Transferase 25 U/L (14-36); Bilirubin,Total < 0.1 mg/dL (0.2-1.3); Blood Urea Nitrogen 9 mg/dL (7-17); Calcium 7.6 mg/dL (8.4-10.2); Carbon Dioxide 25 mmol/L (22-30); Chloride 104 mmol/L (98-107); Estimated CRCL calculation 117 ml/min; Estimated Glomerular Filt Rate > 60; Glucose 104 mg/dL (65-110); Potassium 3.6 mmol/L (3.4-5.0); Sodium 135 mmol/L (137-145)
[2020-12-23] MEDS: MAGNESIUM SULF 20GM/WATER500ML 500 ML 25 MG IV CONT (13:47)
--- NOTE | 2020-12-23 14:32 | PM.OBPNVD ---
OB - PN: Subj Subjective Date/time seen: 12/23/20 14:32 She denies headache, scotomata or RUQ pain. She states she feels better. OB - PN: Obj Data Labs CBC & Chem 7: 12/22/20 16:50 12/23/20 07:49 Labs: Laboratory Results - last 24 hr 12/22/20 12/22/20 12/23/20 16:50 16:50 07:49 WBC 8.7 RBC 3.69 L Hgb 8.2 L Hct 27.0 L MCV 73.2 L MCH 22.2 L MCHC 30.4 L RDW 14.9 H Plt Count 218 MPV 11.0 H Immature Gran % (Auto) 4.4 H Neut % (Auto) 61.2 Lymph % (Auto) 23.4 [place] % (Auto) 8.5 Eos % (Auto) 2.0 Baso % (Auto) 0.5 Lymph # (Auto) 2.03 [place] # (Auto) 0.7 H Eos # (Auto) 0.2 Baso # (Auto) 0.0 Abs Immat Gran (auto) 0.38 H Absolute Neuts (auto) 5.3 Absolute Nucleated RBC 0.0 Nucleated RBC % 0.0 Sodium 136 L 135 L Potassium 3.6 3.6 Chloride 105 104 Carbon Dioxide 26 25 Anion Gap 5 L 6 L BUN 12 9 Creatinine 0.70 0.60 L Estim Creat Clear Calc Not Reportable 117 Estimated GFR > 60 > 60 Glucose 103 104 Uric Acid 5.3 Calcium 8.9 7.6 L Total Bilirubin < 0.1 L < 0.1 L AST 28 25 ALT 47 H 40 H Alkaline Phosphatase 118 115 Total Protein 6.0 L 6.0 L Albumin 3.4 L 3.3 L OB - PN A/P Assessment and Plan (1) Pre-eclampsia, : Code(s): O14.95 - Unspecified pre-eclampsia, complicating the puerperium Status: Acute Assessment and Plan: Most blood pressures normal, mildly increased this am. She is asymptomatic. LFT improving. Plan continue MgSO4 for 24 hours. Time Spent With Patient Time: Total time spent is greater than 50% in coordination of care (as documented) at patient's floor/unit and/or counseling patient: Exam Const: General: comfortable and no acute distress Eyes: General: appearance normal, both eyes and all related structures Resp: Effort & Inspection: normal respiratory effort GI: Other: soft nontender, no RUQ pain Neuro: Other: DTRs 2+, Extrem: General: normal to inspection Other: nontender Psych: Appearance: grossly normal
[2020-12-23] MEDS: NIFEdipine 30 MG TAB.ER.24 PO (19:33)
[2020-12-24 04:49] VITALS: BP 127/74; PULSE 73
[2020-12-24 04:58] LABS: Basophils Percent Auto 0.6 % (0.2-1.2); Eosinophils Absolute Auto 0.2 K/mm3 (0-0.3); Eosinophils Percent Auto 3.1 % (0-4.4); Hematocrit 28.9 % (37.0-47.0); Hemoglobin 8.9 g/dL (12.0-15.0); Immature Granulocyte Absolute 0.24 K/mm3 (0.00-0.031); Immature Granulocyte Percent A 3.6 % (0-0.5); Lymphocytes Absolute Auto 2.16 K/mm3 (0.9-3.2); Lymphocytes Percent Auto 32.4 % (18.3-44.2); Mean Corpuscular HGB Conc 30.8 g/dl (32-36); Mean Corpuscular Hemoglobin 22.6 pg (26-34); Mean Corpuscular Volume 73.5 fl (80-100); Mean Platelet Volume 10.3 fl (7.4-10.4); Monocytes Absolute Auto 0.6 K/mm3 (0.1-0.6); Monocytes Percent Auto 8.2 % (2.6-8.5); Neutrophils Absolute Auto 3.5 K/mm3 (1.3-6.7); Neutrophils Percent Auto 52.1 % (45.5-73.1); Platelet Count Result 227 k/mm3 (150-375); Red Blood Count 3.93 M/mm3 (4.2-5.4); Red Cell Distribution Width 14.9 % (11.5-14.5); White Blood Count 6.7 K/mm3 (4.5-10.0)
[2020-12-24 05:09] LABS: Alanine Aminotransferase 30 U/L (4-35); Albumin Level 3.2 g/dL (3.5-5.1); Alkaline Phosphatase 108 U/L (38-126); Anion Gap 6 mmol/L (8-16); Aspartate Amino Transferase 21 U/L (14-36); Bilirubin,Total < 0.1 mg/dL (0.2-1.3); Blood Urea Nitrogen 10 mg/dL (7-17); Calcium 7.8 mg/dL (8.4-10.2); Carbon Dioxide 24 mmol/L (22-30); Chloride 106 mmol/L (98-107); Estimated CRCL calculation 117 ml/min; Estimated Glomerular Filt Rate > 60; Glucose 98 mg/dL (65-110); Potassium 3.5 mmol/L (3.4-5.0); Sodium 136 mmol/L (137-145)
[2020-12-24 07:28] VITALS: BP 131/79; PULSE 78
[2020-12-24 10:29] VITALS: BP 125/73; PULSE 87
[2020-12-24] MEDS: NIFEdipine 30 MG TAB.ER.24 PO (10:30)
[2020-12-24 11:32] VITALS: BP 111/67; PULSE 92
--- NOTE | 2020-12-24 11:48 | PM.OBPNVD ---
OB - PN: Subj Subjective Date/time seen: 12/24/20 0805 She denies headache scotomata or RUQ pain. She feels better. OB - PN: Obj Data Labs CBC & Chem 7: 12/24/20 04:43 12/24/20 04:43 Labs: Laboratory Results - last 24 hr 12/24/20 12/24/20 04:43 04:43 WBC 6.7 RBC 3.93 L Hgb 8.9 L Hct 28.9 L MCV 73.5 L MCH 22.6 L MCHC 30.8 L RDW 14.9 H Plt Count 227 MPV 10.3 Immature Gran % (Auto) 3.6 H Neut % (Auto) 52.1 Lymph % (Auto) 32.4 [place] % (Auto) 8.2 Eos % (Auto) 3.1 Baso % (Auto) 0.6 Lymph # (Auto) 2.16 [place] # (Auto) 0.6 Eos # (Auto) 0.2 Baso # (Auto) 0.0 Abs Immat Gran (auto) 0.24 H Absolute Neuts (auto) 3.5 Absolute Nucleated RBC 0.0 Nucleated RBC % 0.0 Sodium 136 L Potassium 3.5 Chloride 106 Carbon Dioxide 24 Anion Gap 6 L BUN 10 Creatinine 0.60 L Estim Creat Clear Calc 117 Estimated GFR > 60 Glucose 98 Uric Acid 5.0 Calcium 7.8 L Total Bilirubin < 0.1 L AST 21 ALT 30 Alkaline Phosphatase 108 Total Protein 6.0 L Albumin 3.2 L OB - PN A/P Assessment and Plan (1) Pre-eclampsia, : Code(s): O14.95 - Unspecified pre-eclampsia, complicating the puerperium Status: Acute Assessment and Plan: Resolved. Blood pressures stable on medication. Will monitor and if remain normal then discharge this afternoon. Discussed discharge precautions. Time Spent With Patient Time: Total time spent is greater than 50% in coordination of care (as documented) at patient's floor/unit and/or counseling patient: Exam Const: General: healthy appearing, comfortable and no acute distress Eyes: General: appearance normal, both eyes and all related structures Resp: Effort & Inspection: normal respiratory effort Extrem: General: normal to inspection Other: nontender Psych: Appearance: grossly normal
[2020-12-24 13:40] VITALS: BP 148/74; PULSE 72
[2020-12-24 13:55] VITALS: BP 141/80; PULSE 73
--- NOTE | 2021-01-15 11:17 | PM.OBDSVD ---
DS: Admitting Diagnosis Discharge Date 12/24/20 Admitting Diagnosis preeclampsia DS: Discharge Diagnosis Discharge Diagnosis (1) Pre-eclampsia, : Code(s): O14.95 - Unspecified pre-eclampsia, complicating the puerperium Status: Acute OB - DS: Summary Hospital Course Hospital Course: patient was admitted on December 22 with the diagnosis of preeclampsia. She was status post vaginal delivery 7 days previously. She had severe range elevated blood pressures. She was started on magnesium sulfate for 24 hours. She was also started on antihypertensive with Procardia. Her severe range blood pressures did resolve. As she had also had initial elevation of liver function tests on admission. It was mild. Her liver function test did resolved to normal on December 24. She did have resolution of her headache. Her blood pressure ranges prior to discharge were 130s to 140s over 70s to 90s. On December 24 she was doing well no headaches blood pressures were stable. She was discharged to home. OB Procedures : PIH Mgmt OB Procedures Intrapartum: Other OB Procedures: : None Time Spent with Patient Time attestation: Total time spent providing and/or coordinating discharge services: Exam Const: General: cooperative Orientation/consciousness: oriented to person, oriented to place and oriented to time HENMT: General nose exam: Normal external nose present Eyes: General: appearance normal, both eyes and all related structures Resp: Effort & Inspection: normal respiratory effort GI: Inspection: normal to inspection Skin: General skin exam: normal color Neuro: General: oriented to person, oriented to place and oriented to time Extrem: General: normal to inspection and no calf tenderness Psych: Appearance: grossly normal Mental Status: mental status grossly normal Discharge Plan Discharge Attending physician on discharge: Shoaib Sapp Discharging Clinician: Shoaib Sapp Anticipated Discharge Date/Time: 12/24/20 11:29 Patient Disposition: Home, Self-Care Activity: other - see discharge instructions Diet: as tolerated Discharge Instructions: Follow post instructions on lifting restrictions and driving restrictions. She was informed to call if any severe headaches, spots in vision, persistant right upper quadrant pain. Take blood pressures at home and call if persistant elevated blood pressures of systolic over 150 or diastolic over 100. Stand Alone Forms: General Discharge Information Follow-up/Referrals: Shoaib Sapp MD [Physician] - 1 Week Discharge Medications: New nifedipine [Procardia XL] 30 mg Tablet Extended Release 24hr 30 mg PO DAILY 30 Days Qty: 30 RF: 0 Continued prenat.vits,curt,kdt-udmp-eqzyq Tablet 1 tablet PO DAILY RF: 0 acetaminophen [Tylenol Extra Strength] 500 mg tablet 500 mg PO Q6H PRN (Reason: Headache) RF: 0 ferrous sulfate 300 mg (60 mg iron) Tablet 300 mg PO DAILY RF: 0 No Action metoclopramide HCl 10 mg tablet 10 mg PO QID Qty: 60 RF: 0 Date of admission: 12/22/20 15:47 Primary Care Provider: Adonis Chen Admitting Provider: Shoaib Sapp Attending physician on admission: Shoaib Sapp Condition: Stable
== END 2020-12-24 14:30 | disposition home or self-care (01) | DRG 776 ==
LOC: ANHOBOP 16:07 → ANHOBPP 16:08 → ANHOBOP 12-23 15:13 → ANHOBPP 12-24 14:27
PROVIDERS: Admitting Provider Obstetrics & Gynecology; PCP Internal Medicine; Visit Provider Obstetrics & Gynecology
DX: O14.95 Unspecified pre-eclampsia, complicating the puerperium (principal)
CPT/HCPCS: 36415; 80053; 84550; 85025; 99199; A9270; J3475; J7120

== ENCOUNTER 2021-02-02 08:05 | Outpatient (CLI) | payer OTHER, SELFPAY ==
[2021-02-02 08:44] LABS: Glucose 2 Hour PP 99 mg/dL (>=155)
[2021-02-02 10:12] LABS: Glucose 2 Hour PP 147 mg/dL (>=155)
[2021-02-02 11:17] LABS: Glucose 2 Hour PP 115 mg/dL (>=155)
== END 2021-02-02 08:06 | disposition home or self-care (01) ==
PROVIDERS: PCP Internal Medicine; Visit Provider Obstetrics & Gynecology
DX: E11.9 Type 2 diabetes mellitus without complications (principal)
CPT/HCPCS: 36415; 82947

== ENCOUNTER 2021-06-25 10:34 | Outpatient (CLI) | payer OTHER, SELFPAY ==
--- NOTE | ~2021-06-25 | MR_ITS ---
EXAMINATION: MR knee LT wo con DATE: 06/25/2021 11:46 INDICATION: Left knee pain TECHNIQUE: Magnetic resonance imaging (MRI) of the left knee was performed without intravenous contra st. Sequences included coronal PD-weighted FSE, coronal PD-weighted FS FSE, sagittal T2-weighted FSE , sagittal PD-weighted FS FSE and axial PD weighted fat saturated FSE. COMPARISON: None. FINDINGS: Medial compartment: Medial meniscus is normal. Articular cartilage is normal. Lateral compartment: Lateral meniscus is normal. Mild chondral surface regularity along the posterior aspect of the latera l tibial plateau. Remaining cartilage in the lateral compartment is normal. Patellofemoral compartment: Deep chondral fissure involving greater than 50% the cartilage thickness but without degenerative sub chondral changes at the central aspect of the patellar apical ridge. Remaining cartilage in the white lofemoral compartment is normal. Ligaments and tendons: Anterior and posterior cruciate ligaments are normal. The medial collateral ligament and fibular yvan ateral ligament complex are normal. The extensor mechanism is normal. The visualized medial and later al hamstring tendons as well as the iliotibial band are normal. Fluid: Physiologic amount of fluid in the joint space. 6 x 4 x 2 mm low signal intensity likely loose body i n the inferior gutter along the lateral rim of the lateral tibial plateau. Osseous/other: Normal marrow signal. No fracture or pathologic marrow replacing process. 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 IMPRESSION: 1. Deep chondral fissure at the patellar apical ridge and shallow chondral surface irregularity at th e posterior aspect of the lateral tibial plateau. 2. Lateral trochlear dysplasia and mild lateral Reviewed, dictated and finalized at location A. METRY ASSISTANT IMPRESSION: 1. Deep chondral fissure at the patellar apical ridge and shallow chondral surf tyesha irregularity at the posterior aspect of the lateral tibial plateau. 2. Lateral trochlear dysplasia and mild lateral
== END 2021-06-25 10:35 | disposition home or self-care (01) ==
LOC: ANHIMG 10:40
PROVIDERS: PCP Internal Medicine; Visit Provider Physician Assistant
DX: M25.562 Pain in left knee (principal); M22.12 Recurrent subluxation of patella, left knee; M23.42 Loose body in knee, left knee
CPT/HCPCS: 73721

== ENCOUNTER 2022-05-27 08:42 | Outpatient (CLI) | payer OTHER, SELFPAY ==
[2022-05-27 19:53] LABS: Basophils Percent Auto 0.6 % (0.2-1.2); Eosinophils Absolute Auto 0.2 K/mm3 (0-0.3); Hematocrit 40.1 % (37.0-47.0); Hemoglobin 11.9 g/dL (12.0-15.0); Immature Granulocyte Absolute 0.03 K/mm3 (0.00-0.031); Immature Granulocyte Percent A 0.5 % (0-0.5); Lymphocytes Absolute Auto 2.66 K/mm3 (0.9-3.2); Lymphocytes Percent Auto 39.9 % (18.3-44.2); Mean Corpuscular HGB Conc 29.7 g/dl (32-36); Mean Corpuscular Hemoglobin 21.6 pg (26-34); Mean Corpuscular Volume 72.9 fl (80-100); Mean Platelet Volume 11.1 fl (7.4-10.4); Monocytes Absolute Auto 0.7 K/mm3 (0.1-0.6); Monocytes Percent Auto 10.5 % (2.6-8.5); Neutrophils Percent Auto 45.5 % (45.5-73.1); Platelet Count Result 252 k/mm3 (150-375); Red Cell Distribution Width 15.9 % (11.5-14.5); White Blood Count 6.7 K/mm3 (4.5-10.0)
[2022-05-27 20:02] LABS: Alanine Aminotransferase 30 U/L (6-35); Alkaline Phosphatase 111 U/L (38-126); Anion Gap 6 mmol/L (8-16); Aspartate Amino Transferase 49 U/L (14-36); Bilirubin,Total 0.2 mg/dL (0.2-1.3); Blood Urea Nitrogen 10 mg/dL (7-17); Calcium 8.5 mg/dL (8.4-10.2); Carbon Dioxide 29 mmol/L (22-30); Chloride 105 mmol/L (98-107); Cholesterol 168 mg/dL (0-200); Estimated Glomerular Filt Rate > 60; Glucose 96 mg/dL (65-110); HDL Direct 32 mg/dL; Potassium 3.7 mmol/L (3.4-5.0); Sodium 140 mmol/L (137-145); Triglycerides 100 mg/dL (<150)
[2022-05-27 20:06] LABS: Iron 41 ug/dL (37-170)
[2022-05-27 20:07] LABS: Rheumatoid Factor < 8.6 IU/ML (<12)
[2022-05-27 20:14] LABS: LDL Cholesterol Direct 106 mg/dL
[2022-05-27 20:17] LABS: Percent Iron Saturation 11 % (20-50)
[2022-05-27 20:28] LABS: Atypical Lymphocytes Present; Hypochromasia 1+ (NORMAL); Platelet Estimate Adequate (Adequate)
[2022-05-27 20:30] LABS: Vitamin D 25 Hydroxy 27.3 ng/mL
[2022-05-27 21:08] LABS: Folic Acid 11.9 ng/mL (2.76->20)
[2022-05-27 22:44] LABS: Hemoglobin A1C 5.5 % (<5.7)
[2022-05-30 20:31] LABS: ANA Cascade Screen Positive (Negative)
[2022-05-30 21:42] LABS: Chromatin (Nucleosomal) Ab <1.0; RNP Antibody <1.0; Sm Antibody <1.0; Sm/RNP Antibody <1.0
[2022-05-31 21:10] LABS: Anti Cyclic Citrullinated Pept <16 Units (<20)
[2022-05-31 21:18] LABS: Prolactin 22.6 ng/mL (***)
== END 2022-05-27 08:43 | disposition home or self-care (01) ==
LOC: ANHGOSHLAB 08:45
PROVIDERS: PCP Family Medicine; Visit Provider Nurse Practitioner Family
DX: Z00.00 Encounter for general adult medical examination without abnormal findings (principal); M25.50 Pain in unspecified joint; E61.1 Iron deficiency; N92.0 Excessive and frequent menstruation with regular cycle; I10 Essential (primary) hypertension; E22.1 Hyperprolactinemia; G43.919 Migraine, unspecified, intractable, without status migrainosus; E11.9 Type 2 diabetes mellitus without complications; E78.5 Hyperlipidemia, unspecified; E55.9 Vitamin D deficiency, unspecified
CPT/HCPCS: 36415; 80053; 80061; 82306; 82607; 82728; 82746; 83036; 83540; 83550; 84146; 84443; 85025; 86038; 86200; 86430

== ENCOUNTER → 2022-06-17 15:21 | Outpatient (CLI) | payer OTHER, SELFPAY ==
--- NOTE | ~2022-06-17 | MR_ITS ---
EXAMINATION: MR knee RT wo con DATE: 06/17/2022 15:53 INDICATION: Right knee pain TECHNIQUE: Magnetic resonance imaging (MRI) of the right knee was performed without intravenous contr ast. Sequences included coronal PD-weighted FSE, coronal PD-weighted FS FSE, sagittal T2-weighted FS E, sagittal PD-weighted FS FSE and axial PD weighted fat saturated FSE. COMPARISON: None. FINDINGS: Medial compartment: Medial meniscus is normal. Articular cartilage is normal. Lateral compartment: Lateral meniscus is normal. Articular cartilage is normal. Patellofemoral compartment: Articular cartilage is normal. Ligaments and tendons: Anterior and posterior cruciate ligaments are normal. The medial collateral ligament and fibular yvan ateral ligament complex are normal. The extensor mechanism is normal. The visualized medial and later al hamstring tendons as well as the iliotibial band are normal. Fluid: Physiologic amount of fluid in the joint space. No loose osteochondral bodies identified. Osseous/other: There is approximately 5 mm lateral patellar subluxation. Normal marrow signal. No fracture or pathol ogic marrow replacing process. IMPRESSION: 1. 5 mm lateral patellar subluxation. Otherwise unremarkable right knee MRI with normal menisci, cart ilage and stabilizing ligaments. Reviewed, dictated and finalized at location A. MOGRAPHER IMPRESSION: 1. 5 mm lateral patellar subluxation. Otherwise unremarkable right knee MRI wit h normal menisci, cartilage and stabilizing ligaments.
== END ==
PROVIDERS: PCP Family Medicine; Visit Provider Nurse Practitioner Family
DX: M25.561 Pain in right knee (principal); S83.011A Lateral subluxation of right patella, initial encounter
CPT/HCPCS: 73721

== ENCOUNTER 2022-09-07 09:36 | Outpatient (CLI) | payer OTHER, SELFPAY ==
--- NOTE | ~2022-09-07 | US_ITS ---
Limited Abdominal Sonogram: Real-time sonographic imaging of the right upper quadrant was performed. Clinical History: Abnormal LFTs Findings: The liver appears normal with no evidence of mass lesion or bile duct dilatation. Main por edvin vein demonstrates normal direction of flow. The gallbladder is well distended, and appears normal with no evidence of gallstone or wall thickening. The common bile duct measures 4 mm. The visualize d pancreas, aorta, and IVC are unremarkable. Impression: No significant abnormality seen. Reviewed, dictated and finalized at location . Impression: No significant abnormality seen.
--- NOTE | ~2022-09-07 | MR_ITS ---
EXAMINATION: MR pituitary wo/w con DATE: 09/07/2022 11:04 INDICATION: Migraine headache. TECHNIQUE: Magnetic resonance imaging (MRI) of the brain and brainstem was performed without and with 17 mL MultiHance intravenous contrast. COMPARISON: Brain MRI 03/31/2020 FINDINGS: The pituitary is normal in size with height of 7 mm and concave superior margin. There is a 2 mm hypoenhancing versus nonenhancing mass in the pituitary on the left. There is no intracranial h emorrhage or acute infarction. The ventricles are normal in size. The paranasal sinuses are clear. Th e orbits are normal. The mastoid air cells are normal. IMPRESSION: 1. 2 mm pituitary mass, which may be a benign cyst or less likely a microadenoma. Reviewed, dictated and finalized at location A. IMPRESSION: 1. 2 mm pituitary mass, which may be a benign cyst or less likely a microadenom a.
== END 2022-09-07 09:37 | disposition home or self-care (01) ==
PROVIDERS: PCP Family Medicine; Visit Provider Internal Medicine
DX: G43.909 Migraine, unspecified, not intractable, without status migrainosus (principal); R94.5 Abnormal results of liver function studies
CPT/HCPCS: 70553; 76705; A9577

== ENCOUNTER 2023-09-23 17:44 | Emergency (ER) | payer OTHER, SELFPAY ==
--- NOTE | ~2023-09-23 | XR_ITS ---
EXAMINATION: XR chest 2V Exam Date/Time: 09/23/2023 18:00 CDT HISTORY: sob/productive cough Comparison: None. RESULT: Lines, tubes, and devices: None. Lungs and pleura: Mild diffuse reticular opacities and cuffing. Subsegmental left lower lobe airspac e disease. Cardiomediastinal silhouette: Unremarkable. Other: No acute osseous or upper abdominal finding. IMPRESSION: Subsegmental left lower lobe airspace disease likely representing atelectasis or the consolidation of pneumonia. More diffuse pulmonary opacities may represent mild interstitial edema versus respiratory bronchiolit is. Reviewed, dictated and finalized at location K. IMPRESSION: Subsegmental left lower lobe airspace disease likely representing atelectasis o r the consolidation of pneumonia. More diffuse pulmonary opacities may represent mild interstitial edema versus r espiratory bronchiolitis.
--- NOTE | 2023-09-23 17:57 | ED.URI ---
HPI - URI/Sore Throat General Chief Complaint: Upper Respiratory Infection Stated Complaint: shortness of breath Time Seen by Provider: 09/23/23 17:57 Source: patient Mode of arrival: ambulatory Limitations: no limitations History of Present Illness HPI Narrative: Samantha is a 38-year-old female patient presenting to the clinic today with complaints of low-grade fever, shortness of breath, productive cough with yellow phlegm, body aches, and fatigue for the past 4 days. She reports she has felt feverish. Contacted her primary care provider and they center and prescription for azithromycin, albuterol inhaler, Tessalon Perles, and Afrin nasal spray. States she has taken these and is not feeling any better. Last albuterol inhaler dose was approximately 2 hours ago. History of asthma. Denies any chest pain. MD elicited complaint: cough and other (Shortness of breath) Related Data Home Medications Medication Instructions Recorded Confirmed cholecalciferol (vitamin D3) 50 50 mcg PO DAILY 07/16/21 03/09/23 mcg (2,000 unit) capsule multivitamin 1 tablet PO DAILY 03/03/22 03/09/23 cetirizine 10 mg tablet (Zyrtec) 10 mg PO DAILY PRN 04/06/22 03/09/23 ferrous sulfate 325 mg (65 mg 325 mg PO DAILY 03/09/23 03/09/23 iron) tablet Allergies Allergy/AdvReac Type Severity Reaction Status Date / Time No Known Allergies Allergy Verified 09/23/23 18:05 Review of Systems Review of Systems: Pertinent positives per HPI. Patient denies any fever, chills, rash, headache, visual changes, dizziness, chest pain, palpitations, nausea, vomiting, diarrhea, constipation, abdominal pain, or any urinary issues. [facility] Past Medical History Medical History Asthma Depression Environmental allergies Essential (primary) hypertension Generalized joint pain Gestational diabetes History of oligohydramnios History of PCOS Hypovitaminosis D Medial meniscus tear Migraines Obesity Patellar subluxation Peroneal tendonitis Pre-eclampsia, Right ankle pain Right knee pain Surgical History Surgical History History of arthroscopic knee surgery (~09/2021) Left for patella subluxation [place] teeth removed Family History Family History Father Hypertension Mother Hypertension Sibling IBS (irritable bowel syndrome) Social History Social History Smoking status: Never smoker Alcohol intake: never Substance use: never Substance use type: does not use Lack of Transportation: No Lack of Food: Never True Current Housing: I Have Housing Concerned About Future Housing: No Difficulty Paying Gas/Electric Bills: No Difficulty Paying for Meds: No Currently Unemployed: No Education: Master's Degree or Higher Difficulty w/ Childcare or Family Care: No Gender identity (if verbalized by the patient): Female Spiritual care concerns: No Comments At the time of my signature, I reviewed and agree with the nursing past medical, surgical, social, and family history. There is no relevant family history pertinent to the patient complaint. Exam Narrative: General: Well-developed, well nourished, taking shallow breaths/increased work to breath Head: Normocephalic, atraumatic Eyes: Pupils equally round and reactive to light bilaterally, EOM intact, sclera and conjunctive clear, no discharge, lids normal Ears: TMs intact and congested, ear canals clear, no drainage, grossly hearing normal. Nose: Nares patent, clear nasal discharge, no inflammation, no sinus tenderness. Mouth: Oral pharynx without lesions or masses, good dentition, MMM. Neck: Supple, trachea midline, no enlargement of anterior or posterior cervical nodes, no thyroid masses or goiter palpable. Cardio: Regular ra
[2023-09-23 18:01] VITALS: BP 134/91; PULSE 120; RESP 16; TEMP 37.3; O2SAT 99
[2023-09-23 18:06] VITALS: BP 134/91; PULSE 120; RESP 16; TEMP 37.3; O2SAT 99
[2023-09-23 18:22] VITALS: PULSE 119; O2SAT 93
[2023-09-23] MEDS: IPRATROPIUM BR 0.02% INH SOLN 0.5 MG/2.5 ML VIAL INHALATION (18:35)
[2023-09-23] MEDS: ALBUTEROL SULFATE NEB 2.5 MG/3 ML INH INHALATION (18:39)
[2023-09-23 19:08] VITALS: PULSE 107; O2SAT 97
== END 2023-09-23 19:09 | disposition home or self-care (01) ==
PROVIDERS: Emergency Provider Nurse Practitioner Family; PCP Internal Medicine
DX: J18.9 Pneumonia, unspecified organism (principal); I10 Essential (primary) hypertension; E28.2 Polycystic ovarian syndrome; E66.9 Obesity, unspecified; Z68.34 Body mass index [BMI] 34.0-34.9, adult; J45.909 Unspecified asthma, uncomplicated
CPT/HCPCS: 71046; 94640; 99213; G0463

== ENCOUNTER 2024-01-04 15:32 | Outpatient (CLI) | payer OTHER, SELFPAY ==
--- NOTE | ~2024-01-04 | MM_ITS ---
EXAMINATION: MM screening muna BI w anthony HISTORY: Screening TECHNIQUE: Craniocaudal and mediolateral oblique 3-D tomosynthesis images were obtained and synthetic 2-D images were generated. CAD analysis was submitted and interpreted. COMPARISON: No prior mammogram is available for comparison at this institution. BREAST PARENCHYMAL COMPOSITION: Not dense: There are scattered areas of fibroglandular density. FINDINGS: There is a small 3 mm mass in the upper outer quadrant of the left breast anteriorly near t he nipple. There are no suspicious masses, calcifications or architectural distortion in the right br east to suggest malignancy. IMPRESSION: 1. Left breast mass, upper outer quadrant anteriorly. 2. Additional mammographic views and possible breast ultrasound are recommended. BI-RADS Category 0: Incomplete: Needs additional imaging evaluation. Reviewed, dictated and finalized at location B. IMPRESSION: 1. Left breast mass, upper outer quadrant anteriorly. 2. Additional mammographic views and possible breast ultrasound are recommended . BI-RADS Category 0: Incomplete: Needs additional imaging evaluation.
== END 2024-01-04 15:33 ==
LOC: MICIMG 15:34
PROVIDERS: PCP Obstetrics & Gynecology; Visit Provider Obstetrics & Gynecology
DX: Z12.31 Encounter for screening mammogram for malignant neoplasm of breast (principal); N63.21 Unspecified lump in the left breast, upper outer quadrant
CPT/HCPCS: 77063; 77067

== ENCOUNTER 2024-02-01 07:48 | Outpatient (CLI) | payer OTHER, SELFPAY ==
--- NOTE | ~2024-02-01 | MMUS_ITS ---
EXAMINATION: MM diagnostic muna LT w anthony, US breast LT complete HISTORY: Follow-up left breast mass TECHNIQUE: Additional 3-D tomosynthesis images of the left breast were performed and synthetic 2-D im ages were generated. CAD analysis was submitted and interpreted. High resolution complete left breast ultrasound was performed. COMPARISON: 01/04/2020 BREAST PARENCHYMAL COMPOSITION: Not dense: There are scattered areas of fibroglandular density. FINDINGS: MAMMOGRAPHIC FINDINGS: There is a small circumscribed mass in the upper outer quadrant of the left breast adjacent to the ni pple. There are no suspicious calcifications or architectural distortion. ULTRASOUND: Complete US of all 4 quadrants of the left breast/s and retroareolar region was reviewed. At 12:00 in the subareolar location of the left breast there is a 5 mm cyst corresponding to the mammographic fi nding. No suspicious masses to suggest malignancy. IMPRESSION: 1. No evidence for malignancy in the left breast. Benign finding. 2. Routine yearly screening mammogram and regular clinical breast examination are recommended. BI-RADS Category 2: Benign finding(s). Reviewed, dictated and finalized at location B. IMPRESSION: 1. No evidence for malignancy in the left breast. Benign finding. 2. Routine yearly screening mammogram and regular clinical breast examination a re recommended. BI-RADS Category 2: Benign finding(s).
== END 2024-02-01 07:49 | disposition home or self-care (01) ==
LOC: MICIMG 07:48
PROVIDERS: PCP Obstetrics & Gynecology; Visit Provider Obstetrics & Gynecology
DX: R92.8 Other abnormal and inconclusive findings on diagnostic imaging of breast (principal)
CPT/HCPCS: 76641; 77061; 77065; G0279

== ENCOUNTER 2024-11-19 09:13 | Outpatient (CLI) | payer OTHER, SELFPAY ==
--- NOTE | ~2024-11-19 | US_ITS ---
Pelvic ultrasound. Clinical History: Pelvic pain Technique: Realtime transabdominal and transvaginal scanning of the pelvis was performed. Color flow Doppler and Doppler spectral analysis were performed. Findings: The uterus is anteverted. The endometrial stripe has a thickness of 12 mm. No focal mass i s identified. The right ovary measures 2.8 x 2.9 x 3.2 cm. Acute hemorrhagic cyst versus small endometrioma present , measuring 2.4 cm in diameter. The left ovary measures 2.2 x 1.4 x 2.0 cm. No significant left ovarian or adnexal mass is seen. There is trace free fluid in the cul de sac. Impression: 2.4 cm right ovarian hemorrhagic cyst versus endometrioma. Reviewed, dictated and finalized at [facility]. Impression: 2.4 cm right ovarian hemorrhagic cyst versus endometrioma.
== END 2024-11-19 09:14 | disposition home or self-care (01) ==
LOC: GOSHIMG 09:13
PROVIDERS: PCP Obstetrics & Gynecology; Visit Provider Obstetrics & Gynecology
DX: N83.201 Unspecified ovarian cyst, right side (principal); N80.121 Deep endometriosis of right ovary
CPT/HCPCS: 76830; 76856

== ENCOUNTER 2025-01-08 08:18 | Outpatient (CLI) | payer OTHER, SELFPAY ==
--- NOTE | ~2025-01-08 | MM_ITS ---
EXAMINATION: MM screening muna BI w anthony HISTORY: Screening TECHNIQUE: Craniocaudal and mediolateral oblique 3-D tomosynthesis images were obtained and synthetic 2-D images were generated. CAD analysis was submitted and interpreted. COMPARISON: Mammogram 01/04/2024 BREAST PARENCHYMAL COMPOSITION: The breasts are heterogeneously dense, which may obscure small masses. FINDINGS: There is no evidence of suspicious mass, calcification, or architectural distortion to suggest malignancy. Focal asymmetry in the central left breast, middle to posterior depth. Focal asymmetry in the central right breast, middle to posterior depth IMPRESSION: 1. Focal asymmetry in the central left breast, middle to posterior depth. This study is incomplete. A diagnostic left breast mammogram and a diagnostic left breast ultrasound is recommended. 2. Focal asymmetry in the central right breast, middle to posterior depth. This study is incomplete. A diagnostic right breast mammogram and a diagnostic right breast ultrasound is recommended. BI-RADS Category 0: Incomplete-Needs additional imaging evaluation. Reviewed, dictated and finalized at location Q. IMPRESSION: 1. Focal asymmetry in the central left breast, middle to posterior depth. This study is incomplete. A diagnostic left breast mammogram and a diagnostic left b reast ultrasound is recommended. 2. Focal asymmetry in the central right breast, middle to posterior depth. This study is incomplete. A diagnostic right breast mammogram and a diagnostic righ t breast ultrasound is recommended. BI-RADS Category 0: Incomplete-Needs additional imaging evaluation.
== END 2025-01-08 08:19 | disposition home or self-care (01) ==
LOC: MICIMG 08:19
PROVIDERS: PCP Obstetrics & Gynecology; Visit Provider Obstetrics & Gynecology
DX: Z12.31 Encounter for screening mammogram for malignant neoplasm of breast (principal); R92.8 Other abnormal and inconclusive findings on diagnostic imaging of breast
CPT/HCPCS: 77063; 77067

== ENCOUNTER 2025-02-11 10:57 | Outpatient (CLI) | payer OTHER, SELFPAY ==
--- NOTE | ~2025-02-11 | MM_ITS ---
EXAMINATION: MM diagnostic muna BI w anthony INDICATION: 39-year old female; BI-RADS 0, callback to evaluate Both breasts focal asymmetries. COMPARISON: 01/08/2025 TECHNIQUE: Digital breast tomosynthesis True lateral view and spot compression pain CC and MLO views of Both breasts were obtained with computer-aided detection to assist in interpretation of the study. FINDINGS: The breasts are heterogeneously dense, which may obscure small masses. The focal asymmetry seen in the central retroareolar at middle to posterior depth in Both breasts on the screening mammogram effaces on additional views, compatible with normal overlapping tissue.. IMPRESSION: Both breasts finding represents superimposition of fibroglandular tissue. No further investigation necessary. RECOMMENDATION: Annual screening mammography in 12 months BI-RADS 2, BENIGN Reviewed, dictated and finalized at location B. IMPRESSION: Both breasts finding represents superimposition of fibroglandular tissue. No fu rther investigation necessary. RECOMMENDATION: Annual screening mammography in 12 months BI-RADS 2, BENIGN
--- OUTSIDE RECORDS SUMMARY | 2025-02-11 12:07 | XMS_ITS | Clinical Summary ---
Author Organization [facility] Medical Office Building [address] Address [address] [place] [address] Care Team Providers Care Floor Runner Name Role Phone Adonis Chen MD Primary Care Provider [phone] Devante Figueroa MD Unavailable Allergies No known active allergies Medications sertraline (ZOLOFT) 50 mg tablet Take 50 mg by mouth daily Active SUMAtriptan (IMITREX) 50 mg tabletIndicatio ns:Migraine Take 50 mg by mouth every 2 (two) hours as needed for migraine May repeat dose once in 2 hours if no relief. Do not exceed 2 doses in 24 hours. Active ascorbic acid (VITAMIN C) 500 mg tablet,chewable Take 1 tablet/chew tab (500 mg total) by mouth 2 (two) times a day 60 tablet/chew tab 09/06/2021 Active aspirin 81 mg enteric coated tabletIndicatio ns:prevention of thrombosis Take 1 tablet (81 mg total) by mouth 2 (two) times a day for 14 days 28 tablet 09/06/2021 Active cholecalciferol (VITAMIN D-3) 2000 unit capsule Take 1 capsule (2,000 Units total) by mouth daily 30 capsule 09/06/2021 Active compression socks, medium misc 1 Units daily Calf circumference : 16.25 in (41 cm); quad circumference : 20.75 in (53 cm) 1 each 09/06/2021 Active omeprazole (PriLOSEC) 10 mg capsule Take 1 capsule (10 mg total) by mouth daily for 14 days 14 capsule 09/23/2021 Active ondansetron (ZOFRAN) 4 mg tablet Take 1 tablet (4 mg total) by mouth every 6 (six) hours as needed for nausea or vomiting 10 tablet 09/23/2021 Active HYDROcodone-tyesha taminophen (NORCO) 5-325 mg per tabletIndicatio ns:Pain Take 1-2 tablets every 4 hours as needed for pain 15 tablet 09/23/2021 Active Jublia 10 % solution with applicator 08/05/2021 Active Active Problems Problem Noted Date Diagnosed Date Loose body of left knee 08/18/2021 Overview (08/18/2021): Added automatically from request for surgery [id number] Gestational diabetes mellitus, class A2 07/10/19 Oligohydramnios, antepartum 07/09/2021 Recurrent subluxation of left patella 02/21/2020 Medical History Medical History Date Comments Asthma Headache migraines Depression post Family History Medical History Relation Name Comments Hypertension Other Relation Name Status Comments Other Social History Tobacco Use Types Packs/Day Years Used Date Smoking Tobacco: Never Smokeless Tobacco: Never AUDIT-C Answer Date Recorded Q1: How often do you have a drink containing alc ohol? 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 Sexual Orientation Not on file Obstetrics History Last Filed Vital Signs Vital Sign Reading Time Taken Comments Blood Pressure 131/91 01/12/2022 9:23 AM CDT Pulse 74 01/12/2022 9:23 AM CDT Temperature 36.7 C (98 F) 09/06/2021 4:00 PM CDT Respiratory Rate 20 09/06/2021 4:00 PM CDT Oxygen Saturation 95% 09/06/2021 4:00 PM CDT Inhaled Oxygen Concentration - - Weight 88 kg (194 lb) 01/12/2022 9:23 AM CDT Height 165.1 cm (5' 5) 01/12/2022 9:23 AM CDT Body Mass Index 32.28 01/12/2022 9:23 AM CDT Plan of Treatment Not on file [place] [address] [place] [address] [facility] Care Teams Floor Runner Relationship Specialty Start Date End Date Adonis Chen MD [address] [place] [address] PCP - General Internal Medicine 06/08/21 Devante Figueroa MD [address] [place] [address] [address] [place] [address] Surgeon Orthopedic Surgery 09/06/21
--- OUTSIDE RECORDS SUMMARY | 2025-02-11 12:07 | XMS_ITS | Clinical Summary ---
Author Organization [facility] Address [address] [place] [address] Phone Care Team Providers Care Tariff Counsel Name Role Phone Adonis Chen MD Primary Care Provider [phone] Allergies No known active allergies Medications OneTouch Verio test strips Strip USE TO TEST BLOOD SUGAR FOUR TIMES A DAY DIRECTED 1 Active OneTouch Verio Reflect Meter DIRECTED 1 Active OneTouch Delica Plus Lancet 33 gauge USE TO TEST BLOOD SUGAR FOUR TIMES A DAY DIRECTED 1 Active multivitamins with minerals Tablet Take 1 Tablet by mouth daily. Active ferrous sulfate 134 mg (27 mg iron) Tablet Take 134 mg by mouth. Active riboflavin, VITAMIN B2, 100 mg Tablet Take by mouth. Activ e Insulin Saco, Disposable, (TechLITE Pen Needle) 32 gauge x 5/32 Needle Use as directed to administer insulin. 100 Each 11/14/2020 1:36 PM CDT 1 Active insulin glargine (LANTUS) 100 unit/mL injection Inject 18 Units by subcutaneous injection daily at bedtime. 3 mL 1 Active Active Problems Problem Noted Date Diagnosed Date MFM/OBH, oligo, A2GDM Gestational diabetes mellitus, class A2 Immunizations Immunization Administration Dates Next Due (ADACEL/BOOSTRIX)(10 YR UP) TDAP VACCINE, 0.5ML, IM 11/10/2020 (PFIZER)(12 YR UP) COVID-19 VACCINE - EMERGENCY USE AUTHORIZATION, MRNA, [id number](PF) 30 MCG/0.3 ML IM SUSP 10/13/2020,09/19/2020 Social History Tobacco Use Types Packs/Day Years Used Date Smoking Tobacco: Never Smokeless Tobacco: Never Alcohol Use Standard Drinks/Week Comments Never 0 (1 standard drink = 0.6 oz pur e alcohol) Comments No Sex and Gender Information Value Date Recorded Sex Assigned at Not on file 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 Gender Identity Not on file Sexual Orientation Not on file Last Filed Vital Signs Vital Sign Reading Time Taken Comments Blood Pressure 132/76 11/28/2020 7:56 PM CDT Pulse 85 11/27/2020 9:30 PM CDT Temperature 36.7 C (98 F) 11/28/2020 7:45 PM CDT Respiratory Rate 18 11/28/2020 7:45 PM CDT Oxygen Saturation 100% 11/28/2020 7:56 PM CDT Inhaled Oxygen Concentration - - Weight 85.3 kg (188 lb) 12/03/2020 8:50 AM CDT Height 165.1 cm (5' 5) 11/27/2020 11:52 AM CDT Body Mass Index 31.28 11/27/2020 11:52 AM CDT Plan of Treatment Health Maintenance Due Date Last Done Comments HEPATITIS B VACCINES (1 of 3 - 19+ 3-dose series) 09/17/2002 HPV/Cotest (21-29) 09/17/2004 HPV VACCINES (1 - 3-dose SCDM series) 09/17/2010 CERVICAL CANCER SCREENING 09/17/2013 HPV/Cotest (30-65) 09/17/2013 PAP SMEAR 09/17/2013 BREAST CANCER SCREENING 2023 INFLUENZA VACCINE (#1) 2024 COVID-19 Vaccine (3 - 2024- season) 01/06/202512/2020, 09/19/2020 DTAP/TDAP/TD VACCINES (2 - Td or Tdap) 11/10/2030 Insurance [employer] OPEN CHOICE PPO Advance Directives For more information, please contact: [phone] * Full Code (Latest Code Status on File) Date Activated Date Inactivated Comments 11/27/2020 12:25 PM 11/29/2020 2:13 PM * Full Code Date Activated Date Inactivated Comments 11/23/2020 5:06 PM 11/25/2020 1:32 PM * Full Code Date Activated Date Inactivated Comments 11/13/2020 1:13 PM 11/14/2020 3:19 PM Care Teams Tariff Counsel Relationship Specialty Start Date End Date Adonis Chen MD [address] [place] [address] PCP - General Internal Medicine 05/20/20
== END 2025-02-11 10:58 | disposition home or self-care (01) ==
LOC: ANHFOHIMG 10:58
PROVIDERS: PCP Obstetrics & Gynecology; Visit Provider Obstetrics & Gynecology
DX: R92.8 Other abnormal and inconclusive findings on diagnostic imaging of breast (principal)
CPT/HCPCS: 77062; 77066; G0279